=== PATIENT | male | born 1975 | race African-American/Black ===

== ENCOUNTER 2021-10-28 09:05 | Emergency (ER) | payer OTHER ==
[~2021-10-28] VITALS: Ht 188 cm; Wt 81.6 kg
[2021-10-28 09:10] VITALS: BP 125/70
--- NOTE | 2021-10-28 09:10 | NUR ---
RIGHT FOOT , 3RD DIGIT PAIN SINCE TUESDAY - NO TRAUMA. PT STATED PAIN 8/10 ON PAIN SCALE. VITALS ARE WITHIN NORMAL LIMITS. AWAITING MD ORDERS.
[2021-10-28] MEDS ORDERED: AMOX-430 PO ×2 (09:22→09:36)
--- NOTE | 2021-10-28 09:44 | NUR ---
Patient discharged to home in stable condition. Written and verbal after care instructions given. Patient verbalizes understanding of instruction.
== END 2021-10-28 09:44 | disposition home or self-care (01) ==
LOC: ER 09:08
DX: L03.031 Cellulitis of right toe (principal); G89.29 Other chronic pain; Z79.899 Other long term (current) drug therapy

== ENCOUNTER 2021-11-15 09:23 | Emergency (ER) | payer OTHER ==
[~2021-11-15] VITALS: Ht 185.4 cm; Wt 85.3 kg
[~2021-11-15 09:23] MED LIST: AMOX-430 PO
--- NOTE | 2021-11-15 09:39 | NUR ---
urine collected and sent to lab.
[2021-11-15] MEDS ORDERED: ONDANSETRON HCL/PF 4 MG/2 ML VIAL ONE (09:43)
[2021-11-15] MEDS ORDERED: KETOROLAC TROMETHAMINE INJ 30 MG/ML VIAL ONE (09:44)
[2021-11-15] MEDS ORDERED: MORPHINE SULFATE INJ 4 MG/ML DISP.SYRIN ONE (09:44)
--- NOTE | 2021-11-15 09:50 | NUR ---
IV LINE ESTABLISHED ON LAC #20, BLOOD DRAWN AND SENT TO LAB
[2021-11-15 09:54] LABS: BASOPHILS % (AUTO) 0.3 % (0.0-2.0); EOSINOPHILS % (AUTO) 0.7 % (0.0-6.0); HEMATOCRIT 45 % (39-51); LYMPHOCYTES # (AUTO) 0.9 K/uL (0.8-4.8); LYMPHOCYTES % (AUTO) 12.2 % (20.0-44.0); MEAN CORPUSCULAR HGB CONC 33 g/dl (31.0-36.0); MEAN CORPUSCULAR VOLUME 94 fL (80-96); MONOCYTES # (AUTO) 0.4 K/uL (0.1-1.30); MONOCYTES % (AUTO) 5.5 % (2.0-12.0); NEUTROPHILS # (AUTO) 6.2 K/uL (1.8-8.9); NEUTROPHILS % (AUTO) 81.3 % (43.0-81.0); PLATELET COUNT (AUTO) 181 K/uL (150-450); RED BLOOD CELL COUNT(AUTO) 4.76 MIL/uL (4.5-6.0); WHITE BLOOD COUNT (AUTO) 7.6 K/uL (4.3-11.0)
[2021-11-15] MEDS ORDERED: IV NS 0.9% 1,000 ML BAG IV ONE (10:00)
[2021-11-15] MEDS ORDERED: KETOROLAC TROMETHAMINE INJ 30 MG/ML VIAL IV ONE (10:00)
[2021-11-15] MEDS ORDERED: MORPHINE SULFATE INJ 2 MG/ML DISP.SYRIN IV ONE (10:00)
[2021-11-15] MEDS ORDERED: ONDANSETRON HCL/PF 4 MG/2 ML VIAL IVP ONE (10:00)
--- NOTE | 2021-11-15 10:00 | NUR ---
PT TAKEN TO RADIOLOGY FOR CT
[2021-11-15 10:01] LABS: CALCIUM, SERUM 8.3 mg/dL (8.5-10.1); CREATININE 1.5 mg/dL (0.6-1.3); POTASSIUM 3.8 mmol/L (3.5-5.1)
[2021-11-15 10:08] LABS: BILIRUBIN,DIRECT 0.2 mg/dL (0.0-0.2); BILIRUBIN,TOTAL 0.8 mg/dL (0.2-1.0); TOTAL PROTEIN, SERUM 7.1 g/dL (6.4-8.2)
--- NOTE | 2021-11-15 10:10 | NUR ---
PT RETURNED FROM RADIOLOGY
[2021-11-15 10:21] LABS: BILIRUBIN,URINE NEGATIVE (NEGATIVE); COLOR,URINE RED (YELLOW); LEUKOCYTE ESTERASE ,URINE TRACE (NEGATIVE); NITRITE, URINE NEGATIVE (NEGATIVE); PH,URINE 6.5 (5.0-8.0); PROTEIN,URINE >=300 mg/dl (NEGATIVE); UGLUCOSE NEGATIVE (NEGATIVE); UROBILINOGEN,URINE 0.2 EU/dL (0.2)
[2021-11-15 10:39] LABS: RBC,URINE TOO NUMEROUS TO COUN /HPF (0-2)
[2021-11-15 10:40] LABS: BACTERIA,URINE Few /HPF (None Seen); SQUAMOUS EPITHELIAL CELL,UR Few /HPF (None Seen)
[2021-11-15] MEDS ORDERED: CIPR-262 PO (10:52)
[2021-11-15 11:01] VITALS: BP 123/70
--- NOTE | 2021-11-15 11:01 | NUR ---
IV removed. Catheter intact and site benign. Pressure and 4x4 applied to site. No bleeding noted.
--- NOTE | 2021-11-15 11:02 | NUR ---
Patient discharged to home in stable condition. Written and verbal after care instructions given. Patient verbalizes understanding of instruction.
== END 2021-11-15 11:04 | disposition home or self-care (01) ==
LOC: ER 09:29
DX: R31.9 Hematuria, unspecified (principal); G89.29 Other chronic pain; Z79.899 Other long term (current) drug therapy
CPT/HCPCS: 99284; 74176; 96374; 96375; 96361; 85025; 80048; 80076; 81001; 36415; J2270; J1885; J2405; J7030

== ENCOUNTER 2023-11-12 18:47 | Emergency (ER) | payer OTHER ==
[~2023-11-12] VITALS: Ht 185.4 cm; Wt 86.2 kg
[~2023-11-12 18:47] MED LIST changes: +CIPR-262 PO
[2023-11-12 19:46] VITALS: TEMP 98.1
[2023-11-12] MEDS ORDERED: IBUPROFEN 400 MG TABLET ONE (20:03)
[2023-11-12] MEDS: IBUPROFEN 400 MG TABLET PO ONE (20:04)
[2023-11-12 20:29] VITALS: BP 134/91; O2SAT 100
== END 2023-11-12 20:30 | disposition home or self-care (01) ==
LOC: ER 18:50
DX: S86.011A Strain of right Achilles tendon, initial encounter (principal); Z79.899 Other long term (current) drug therapy; X58.XXXA Exposure to other specified factors, initial encounter; Y93.67 Activity, basketball; Y92.89 Other specified places as the place of occurrence of the external cause; Y99.8 Other external cause status
CPT/HCPCS: 73610-TC